=== PATIENT | male | born 1980 | race Caucasian/White ===

== ENCOUNTER 2019-02-24 10:58 | Emergency (ER) | payer MEDICAID, OTHER ==
[2019-02-24 11:06] VITALS: BP 179/106
[2019-02-24] MEDS ORDERED: CLINDAMYCIN 150 MG CAPSULE PO STA (12:16)
[2019-02-24] MEDS ORDERED: HYDROcod/ACETAM 5/325 MG TABLET PO STA (12:16)
--- NOTE | 2019-02-24 12:18 | ED Physician Documentation ---
PD HPI HEENT - Stated complaint Stated Complaint: TOOTH PX - Chief complaint Chief Complaint: Heent - History obtained from History obtained from: Patient - History of Present Illness Timing - onset: Other (2 days of increasing and severe dental pain from a left mandibular molar. Has not seen a dentist in years. No fevers.) Review of Systems Constitutional: denies: Fever, Chills Nose: reports: Reviewed and negative Cardiac: denies: Chest pain / pressure, Palpitations, Pedal edema, Calf pain Respiratory: reports: Reviewed and negative PD PAST MEDICAL HISTORY - Past Surgical History Past Surgical History: Yes - Present Medications Home Medications: Ambulatory Orders Medication Instructions Recorded Confirmed Ibuprofen [Motrin] 800 mg PO Q8H PRN #30 tablet 04/21/15 Clindamycin HCl [Clindamycin 300MG 300 mg PO Q6H #40 capsule 02/24/19 CAP] Hydrocodone/Acetaminophen 1 - 2 each PO Q6H PRN #14 tablet 02/24/19 [Hydrocodon-Acetaminophen 5-325] - Allergies Allergies/Adverse Reactions: Allergies Allergy/AdvReac Type Severity Reaction Status Date / Time No Known Drug Allergies Allergy Verified 02/24/19 11:06 - Social History Does the pt smoke?: Yes Smoking Status: Current every day smoker Does the pt drink ETOH?: Yes Does the pt have substance abuse?: No - Immunizations Immunizations are current?: No Immunizations: Other immun not current - POLST Patient has POLST: No PD ED PE NORMAL - Vitals Vital signs reviewed: Yes - General General: Alert and oriented X 3, No acute distress - HEENT HEENT: Other (The last 2 molars on the left mandible are severely eroded almost down to the gumline and some mild swelling on the the buccal gingiva. No abscess that its really fluctuant and ready for incision. No sublingual edema or trismus.) - Neck Neck: Supple, no meningeal sign, No bony TTP - Neuro Neuro: Alert and oriented X 3, Normal speech Results - Vitals Vitals: Vital Signs - 24 hr 02/24/19 11:05 Temperature 36.7 C Heart Rate 84 Respiratory 20 Rate Blood Pressure 179/106 H O2 Saturation 100 Oxygen O2 Source Room air Departure - Departure Disposition: 01 Home, Self Care Clinical Impression: Pain due to dental caries, Dental abscess Condition: Good Record reviewed to determine appropriate education?: Yes Instructions: ED Tooth Pain Prescriptions: Clindamycin HCl [Clindamycin 300MG CAP] 300 mg PO Q6H #40 capsule Hydrocodone/Acetaminophen [Hydrocodon-Acetaminophen 5-325] 1 - 2 each PO Q6H PRN #14 tablet PRN Reason: pain Comments: As discussed, return for high fever, increasing pain, or swelling under the tongue. It is very important that you follow-up with a dentist. When it comes to dental problems like yours, the emergency department can only offer a short-term solution to your long-term problem. A couple of low cost options for dental care include: [facility] in [place], calls [phone] for an appointment Or [facility] in [place], call [phone] for an appointment. Your blood pressure was elevated today on check into the emergency department. This does not mean that you have hypertension, it is a common phenomenon to come to the emergency department and have elevated blood pressure. I recommend that you see your primary care physician within the week to have it rechecked when you are feeling better. Do not drink or drive while taking narcotic pain medication. Note that many narcotic pain relievers also contain Tylenol/acetaminophen. Please ensure that your total dose of acetaminophen from all sources does not exceed 3 g (3000 mg) per day. You may get constipated while on this medication. Take a stool softener such as Colace twice a day while you are on it. Also add an [id number] laxative such as senna or MiraLAX on any day that you do not have a bowel movement. If you received a narcotic pain medication or sedative while in the emergency department, do not drive for the next 24 hours.
== END 2019-02-24 12:28 | disposition home or self-care (01) ==
LOC: ED 10:58
DX: K04.7 Periapical abscess without sinus (principal); K02.9 Dental caries, unspecified; R03.0 Elevated blood-pressure reading, without diagnosis of hypertension; F17.200 Nicotine dependence, unspecified, uncomplicated
CPT/HCPCS: 99282; 99283; A9270

== ENCOUNTER 2021-03-05 13:02 | Outpatient (CLI) | payer OTHER ==
--- NOTE | 2021-03-05 16:59 | XRAY Report ---
PROCEDURE: Elbow 3 View LT INDICATIONS: L ELBOW PX TECHNIQUE: 3 views of the elbow were acquired. COMPARISON: None. FINDINGS: Bones: No fractures or dislocations. There is a small enthesophyte along the lateral humeral condyle . No suspicious bony lesions. Soft tissues: No elbow joint effusion. No suspicious soft tissue calcifications. IMPRESSION: 1. No fracture or dislocation. 2. Small enthesophytes along the lateral humeral condyle may reflect sequelae of a prior strain or av ulsion injury along the origin of the common extensor tendon. Reviewed by: Zhao Cabrera MD on 03/05/2021 4:58 PM PDT Approved by: Zhao Cabrera MD on 03/05/2021 4:58 PM PDT Station ID: [id number]
== END 2021-03-05 13:03 ==
LOC: DI.N 13:02
PROVIDERS: ATTEND Nurse Practitioner
DX: S42.402A Unspecified fracture of lower end of left humerus, initial encounter for closed fracture (principal)